=== PATIENT | female | born 1990 | race African-American/Black ===

== ENCOUNTER 2016-11-08 13:29 | Emergency (ER) | payer SELFPAY ==
[~2016-11-08] VITALS: Ht 162.6 cm; Wt 91.6 kg
--- NOTE | 2016-11-08 13:54 | NUR ---
PT IS IN ROOM ###2A. DR CONTRERAS EVALUATED THE PT.
[2016-11-08 14:09] LABS: BASOPHILS % (AUTO) 0.1 % (0.0-2.0); EOSINOPHILS # (AUTO) 0.3 K/uL (0.0-0.7); EOSINOPHILS % (AUTO) 5.3 % (0.0-7.0); HEMATOCRIT 36.3 % (37-47); LYMPHOCYTES # (AUTO) 1.6 K/UL (0.8-4.8); LYMPHOCYTES % (AUTO) 27.9 % (20.5-51.5); MEAN CORPUSCULAR HEMOGLOBIN 25.7 UUG (27.0-31.0); MEAN CORPUSCULAR HGB CONC 33 g/dL (32.0-37.0); MEAN CORPUSCULAR VOLUME 77.9 FL (81.0-99.0); MONOCYTES # (AUTO) 0.7 K/UL (0.1-1.30); NEUTROPHILS % (AUTO) 54.7 % (38.5-71.5); PLATELET COUNT (AUTO) 348 K/UL (150-450); RED BLOOD CELL COUNT(AUTO) 4.66 MIL/UL (4.2-5.4); WHITE BLOOD COUNT (AUTO) 5.6 K/UL (4.0-11.2)
[2016-11-08] MEDS ORDERED: AMIT75TA2 PO (14:18)
[2016-11-08] MEDS ORDERED: ONDA8TAB9 PO (14:18)
[2016-11-08] MEDS ORDERED: HYDR50CA PO (14:18)
[2016-11-08] MEDS ORDERED: OMEP20CA10 PO (14:18)
[2016-11-08] MEDS ORDERED: GABA-534 PO (14:18)
[2016-11-08] MEDS ORDERED: CLON0.1T PO ×2 (14:18)
[2016-11-08] MEDS ORDERED: LORA-259 PO (14:18)
[2016-11-08] MEDS ORDERED: SERT100T PO (14:18)
[2016-11-08] MEDS ORDERED: HALO2TAB PO (14:18)
[2016-11-08] MEDS ORDERED: TRAZ-147 PO (14:18)
[2016-11-08] MEDS ORDERED: FOLI1TAB16 PO (14:18)
[2016-11-08] MEDS ORDERED: MAG30ORA PO (14:18)
[2016-11-08] MEDS ORDERED: [UNRECOGNIZED DRUG - OTHER] PO (14:18)
[2016-11-08] MEDS ORDERED: MAG-55 PO (14:18)
[2016-11-08] MEDS ORDERED: IBUP-1955 PO (14:18)
[2016-11-08] MEDS ORDERED: DIVA500T7 PO (14:18)
[2016-11-08] MEDS ORDERED: DULO60CA45 PO (14:18)
[2016-11-08] MEDS ORDERED: DOCU-25 PO (14:18)
[2016-11-08] MEDS ORDERED: FAMO20TA8 PO (14:18)
[2016-11-08] MEDS ORDERED: AMIT150T PO (14:18)
[2016-11-08] MEDS ORDERED: NERVE TONIC PO (14:18)
[2016-11-08] MEDS ORDERED: TRAZ-144 PO (14:18)
[2016-11-08] MEDS ORDERED: LOPE2CAP40 PO (14:18)
[2016-11-08 14:44] LABS: CREATININE 0.8 mg/dL (0.6-1.3); POTASSIUM 3.7 mmol/L (3.5-5.1)
[2016-11-08 14:55] LABS: BILIRUBIN,DIRECT 2.4 mg/dL (0.0-0.2); BILIRUBIN,TOTAL 3.1 mg/dL (0.2-1.0); TOTAL PROTEIN, SERUM 7.5 g/dL (6.4-8.2)
[2016-11-08 15:08] LABS: *URINE HCG, QUAL NEGATIVE (NEGATIVE)
[2016-11-08 15:11] LABS: *BLOOD, URINE NEGATIVE (NEGATIVE); *CLARITY,URINE CLOUDY (CLEAR); *COLOR,URINE AMBER (YELLOW); *KETONES,URINE TRACE (NEGATIVE); *PROTEIN,URINE TRACE (NEGATIVE); LEUKOCYTE ESTERASE ,URINE NEGATIVE (NEGATIVE); NITRITE, URINE NEGATIVE (NEGATIVE); UGLUCOSE NEGATIVE (NEGATIVE)
[2016-11-08 15:23] VITALS: BP 135/71
--- NOTE | 2016-11-08 15:23 | NUR ---
PT WAS D/C TO HER FACILITY. D/C INSTRUCTIONS GIVEN TO THE PT.
[2016-11-08 15:28] LABS: *BILIRUBIN,URIN 3+ (NEGATIVE)
[2016-11-08 15:29] LABS: MUCUS,URINE MANY /LPF (0-FEW); SQUAMOUS EPITHELIAL CELL,UR MODERATE /HPF (NONE SEEN); URINE AMORPHOUS PHOSPHATES MANY /HPF; WBC,URINE 0-3 /HPF (0-3)
== END 2016-11-08 15:24 | disposition home or self-care (01) ==
LOC: ER 13:31
DX: K29.70 Gastritis, unspecified, without bleeding (principal); B19.10 Unspecified viral hepatitis B without hepatic coma; F43.10 Post-traumatic stress disorder, unspecified; Z87.442 Personal history of urinary calculi; Z90.49 Acquired absence of other specified parts of digestive tract; G43.909 Migraine, unspecified, not intractable, without status migrainosus; M79.7 Fibromyalgia; N83.209 Unspecified ovarian cyst, unspecified side; Z88.1 Allergy status to other antibiotic agents; Z88.2 Allergy status to sulfonamides; Z88.6 Allergy status to analgesic agent; F17.200 Nicotine dependence, unspecified, uncomplicated; Z59.0 Homelessness
CPT/HCPCS: 36415; 83690; 84703; 85025; A4663

== ENCOUNTER 2016-11-11 18:13 | Emergency (ER) | payer SELFPAY ==
[~2016-11-11] VITALS: Ht 162.6 cm; Wt 93.0 kg
[~2016-11-11 18:13] MED LIST: AMIT150T PO; AMIT75TA2 PO; CLON0.1T PO; DIVA500T7 PO; DOCU-141 PO; DULO60CA45 PO; FAMO20TA8 PO; FOLI1TAB16 PO; GABA-534 PO; HALO2TAB PO; HYDR50CA PO; IBUP-1955 PO; LOPE2CAP40 PO; LORA-259 PO; MAG-55 PO; MAG30ORA PO; NERVE TONIC PO; OMEP20CA10 PO; ONDA8TAB9 PO; SERT100T PO; TRAZ-144 PO; TRAZ-147 PO; [UNRECOGNIZED DRUG - OTHER] PO
--- NOTE | 2016-11-11 19:22 | NUR ---
Received report from ARIADNE Mary. Assumed care of pt at this time. Pt resting in position of comfort for self. Awaiting further eval. Addendum: 11/11/16 at 2315 by AYDIN Pt drowsy, able to wake with tactile stimuli.
--- NOTE | 2016-11-11 20:00 | NUR ---
Labs drawn and sent by dentures lab technician. Pt awake and c/o 8/10 RUQ pain. MD notified, awaiting further orders.
[2016-11-11 20:01] LABS: BASOPHILS # (AUTO) 0.1 K/uL (0.0-8.0); BASOPHILS % (AUTO) 1.2 % (0.0-2.0); EOSINOPHILS # (AUTO) 0.5 K/uL (0.0-0.7); EOSINOPHILS % (AUTO) 7.3 % (0.0-7.0); LYMPHOCYTES # (AUTO) 2.5 K/UL (0.8-4.8); LYMPHOCYTES % (AUTO) 41.3 % (20.5-51.5); MONOCYTES # (AUTO) 0.8 K/UL (0.1-1.30); MONOCYTES % (AUTO) 12.1 % (0.0-11.0); NEUTROPHILS # (AUTO) 2.5 K/UL (1.8-8.9); NEUTROPHILS % (AUTO) 38.1 % (38.5-71.5); PLATELET COUNT (AUTO) 383 K/UL (150-450); WHITE BLOOD COUNT (AUTO) 6.4 K/UL (4.0-11.2)
[2016-11-11 20:08] LABS: HEMATOCRIT 41.3 % (37-47); HEMOGLOBIN 13.2 G/DL (12.0-16.0); MEAN CORPUSCULAR HEMOGLOBIN 25.3 UUG (27.0-31.0); MEAN CORPUSCULAR HGB CONC 32 g/dL (32.0-37.0); MEAN CORPUSCULAR VOLUME 78.9 FL (81.0-99.0); RED BLOOD CELL COUNT(AUTO) 5.23 MIL/UL (4.2-5.4)
[2016-11-11 20:09] LABS: CARBON DIOXIDE 28 mmol/L (21-32); CHLORIDE 102 mmol/L (98-107); CREATININE 0.9 mg/dL (0.6-1.3); GLUCOSE 115 mg/dL (74-106); POTASSIUM 4.4 mmol/L (3.5-5.1); UREA NITROGEN, BLOOD 7 mg/dL (7-18)
[2016-11-11 20:18] LABS: ETHANOL < 3 MG/DL (0-0)
[2016-11-11 20:20] LABS: ACETAMINOPHEN < 2.0 ug/mL (10-30); ALANINE AMINOTRANSFERASE 1143 U/L (14-59); ALKALINE PHOSPHATASE 163 U/L (50-136); ASPARTATE AMINOTRANSFERASE 1248 U/L (15-37); BILIRUBIN,DIRECT 1.4 mg/dL (0.0-0.2); BILIRUBIN,TOTAL 1.7 mg/dL (0.2-1.0); TOTAL PROTEIN, SERUM 8.3 g/dL (6.4-8.2)
--- NOTE | 2016-11-11 20:25 | NUR ---
Pt resting in position of comfort for self with eyes closed, resp even and unlaboring, sonorous. No obvious signs of distress at this time.
[2016-11-11 20:29] LABS: BAND % (MANUAL) 3 % (0-10); EOSINOPHILS % (MANUAL) 6 % (0-8); LYMPHOCYTES % (MANUAL) 41 % (20-40); MONOCYTES % (MANUAL) 12 % (2-10); NEUTROPHILS % (MANUAL) 38 % (42-75)
[2016-11-11 20:41] LABS: THYROID STIMULATING HORMONE 0.533 mIU/mL (0.358-3.740)
--- NOTE | 2016-11-11 21:10 | NUR ---
Pt resting with eyes closed, resp even and unlabored. Pt conts to be drowsy, waking with tactile stimuli. No obvious signs of distress at this time
[2016-11-11] MEDS ORDERED: MAG HYDROX/AL HYDROX/SIMETH 30 ML LIQUID UDC PO ONE (22:15)
[2016-11-11] MEDS ORDERED: LIDOCAINE VISCUS 2% 15 ML UDC MM ONE (22:15)
[2016-11-11] MEDS ORDERED: LIDOCAINE VISCUS 2% 15 ML UDC ONE (22:39)
[2016-11-11] MEDS ORDERED: MAG HYDROX/AL HYDROX/SIMETH 30 ML LIQUID UDC ONE (22:39)
--- NOTE | 2016-11-11 23:05 | NUR ---
Detox facility called for pt scrap picker
--- NOTE | 2016-11-11 23:28 | NUR ---
Facility staff arrived at bedside to take pt back. Pt stable for discharge per MD. Pt and staff member given ACI. Both verbalized understanding of dc instructions. Pt wheeled out of er via w/c
[2016-11-11 23:29] VITALS: BP 140/58
[2016-11-13 13:10] LABS: HEPATITIS A AB, TOTAL Negative (Negative); HEPATITIS B SURFACE AB Reactive (.)
== END 2016-11-11 23:29 | disposition home or self-care (01) ==
LOC: ER 18:15
DX: R10.11 Right upper quadrant pain (principal); G89.29 Other chronic pain; F20.9 Schizophrenia, unspecified; F31.9 Bipolar disorder, unspecified; Z59.0 Homelessness; Z88.6 Allergy status to analgesic agent; Z88.1 Allergy status to other antibiotic agents; Z86.19 Personal history of other infectious and parasitic diseases
CPT/HCPCS: 36415; 70030-TC; 76705; 83690; 84443; 85025; 85730; 86706; 86708; 86803; A4663; G0480; G0480-TC

== ENCOUNTER 2016-11-13 15:17 | Inpatient (IN) | payer BC, OTHER ==
[~2016-11-13] VITALS: Ht 162.6 cm; Wt 95.3 kg
[2016-11-13] MEDS ORDERED: MISCELLANEOUS MED XX ONE (16:30)
[2016-11-13] MEDS ORDERED: IRR STERIL WATER FOR IRR 700 ML, LACTULOSE 200 G PR ONE ×2 (16:45)
[2016-11-13 17:15] LABS: BASOPHILS # (AUTO) 0.1 K/uL (0.0-8.0); BASOPHILS % (AUTO) 0.9 % (0.0-2.0); EOSINOPHILS # (AUTO) 0.6 K/uL (0.0-0.7); EOSINOPHILS % (AUTO) 8.3 % (0.0-7.0); HEMATOCRIT 39.3 % (37-47); HEMOGLOBIN 12.5 G/DL (12.0-16.0); LYMPHOCYTES # (AUTO) 2.6 K/UL (0.8-4.8); MEAN CORPUSCULAR HEMOGLOBIN 25.1 UUG (27.0-31.0); MEAN CORPUSCULAR HGB CONC 32 g/dL (32.0-37.0); MEAN CORPUSCULAR VOLUME 79.4 FL (81.0-99.0); MONOCYTES # (AUTO) 0.8 K/UL (0.1-1.30); MONOCYTES % (AUTO) 11.6 % (0.0-11.0); NEUTROPHILS # (AUTO) 2.6 K/UL (1.8-8.9); NEUTROPHILS % (AUTO) 40.2 % (38.5-71.5); PLATELET COUNT (AUTO) 407 K/UL (150-450); RED BLOOD CELL COUNT(AUTO) 4.95 MIL/UL (4.2-5.4); WHITE BLOOD COUNT (AUTO) 6.7 K/UL (4.0-11.2)
[2016-11-13 17:25] LABS: CREATININE 0.9 mg/dL (0.6-1.3); POTASSIUM 4.6 mmol/L (3.5-5.1)
[2016-11-13 17:31] LABS: BILIRUBIN,DIRECT 0.6 mg/dL (0.0-0.2); ETHANOL < 3 MG/DL (0-0); TOTAL PROTEIN, SERUM 7.9 g/dL (6.4-8.2)
--- NOTE | 2016-11-13 18:00 | NUR ---
Pt sleeping but arousable to light touch, NAD noted at this time.
--- NOTE | 2016-11-13 18:28 | NUR ---
Pt refused I+O cath for urine, attempted to urinate via bedpain x [address] but unable to so far. Dr Go notified.
--- NOTE | 2016-11-13 19:15 | NUR ---
RECEIEVED REPORT FROM DAYSHIFT NURSE, PT IN BED ASLEEP AROUSABLE TO NAME, PT ALERT, ORIENTED X 4, NO RESP DISTRESS NOTED OR REPORTED, WILL CONTINUE TO MONITOR FOR SAFETY, PAIN AND COMFORT... PT RETURNED TO SLEEP..
--- NOTE | 2016-11-13 20:07 | NUR ---
Pt. admitted to Med Surg , under care of Dr. Carlton Patel, Belongs List completed, pt is alert, oriented x 4, no resp distress noted or reported upon transfer assessment... pt transferred via gurney...
--- NOTE | 2016-11-13 20:20 | NUR ---
PT [facility] FROM [facility] [employer]. PT A/OX3. VS STABLE. NO SIGNS OF ACUTE DISTRESS. NO COMPLAINTS OF PAIN AT THIS TIME. ORIENTED TO ROOM. ABLE TO MAKE NEEDS KNOWN. SAFETY PRECAUTIONS IMPLEMENTED. CALL LIGHT WITHIN REACH. WILL CONTINUE TO MONITOR.
[2016-11-13] MEDS ORDERED: LORAZEPAM 2 MG/1 ML VIAL IV PRN (20:45)
[2016-11-13] MEDS ORDERED: ONDANSETRON 4 MG/2 ML VIAL IV PRN (20:45)
[2016-11-13] MEDS ORDERED: BISACODYL 10 MG SUPP.RECT RC PRN (20:45)
[2016-11-13] MEDS ORDERED: HALOPERIDOL LACTATE 5 MG/1 ML VIAL IM PRN (20:45)
[2016-11-13 21:04] VITALS: BP 90/61
[2016-11-13] MEDS: IV D5/ 0.9% NACL 1,000 ML IV PRN (22:11)
[2016-11-14 04:40] VITALS: BP_SYST 141; BP_SYST 93; BP_DIAS 63; BP_DIAS 64
--- NOTE | 2016-11-14 06:39 | NUR ---
END OF SHIFT NOTES. PT SLEPT WELL THROUGHOUT SHIFT. V/S STABLE. NO SIGNS OF ACUTE DISTRESS. NO COMPLAINTS OF PAIN AT THIS TIME. IVF INFUSING. NEEDS ATTENDED. SAFETY MAINTAINED. CALL LIGHT WITHIN REACH.
--- NOTE | 2016-11-14 07:10 | NUR ---
PT SLEEPING IN BED, AWAKENS TO TOUCH. IN NO ACUTE DISTRESS, ABLE TO MAKE NEEDS KNOWN, NONE AT THIS TIME. IV INTACT AND PATENT INFUSING WELL. PT REMAINS NPO, ALL SAFETY AND COMFORT MEASURES ATTENDED TO, CALL LIGHT IN REACH.
[2016-11-14 07:14] LABS: BASOPHILS % (AUTO) 0.8 % (0.0-2.0); EOSINOPHILS # (AUTO) 0.5 K/uL (0.0-0.7); EOSINOPHILS % (AUTO) 8.4 % (0.0-7.0); HEMATOCRIT 35.9 % (37-47); HEMOGLOBIN 11.6 G/DL (12.0-16.0); LYMPHOCYTES # (AUTO) 2.6 K/UL (0.8-4.8); LYMPHOCYTES % (AUTO) 42.8 % (20.5-51.5); MEAN CORPUSCULAR HEMOGLOBIN 25.7 UUG (27.0-31.0); MEAN CORPUSCULAR HGB CONC 33 g/dL (32.0-37.0); MEAN CORPUSCULAR VOLUME 79.2 FL (81.0-99.0); MONOCYTES # (AUTO) 0.7 K/UL (0.1-1.30); MONOCYTES % (AUTO) 11.7 % (0.0-11.0); NEUTROPHILS # (AUTO) 2.2 K/UL (1.8-8.9); NEUTROPHILS % (AUTO) 36.3 % (38.5-71.5); PLATELET COUNT (AUTO) 350 K/UL (150-450); RED BLOOD CELL COUNT(AUTO) 4.53 MIL/UL (4.2-5.4)
[2016-11-14 07:55] LABS: MAGNESIUM 2.3 mg/dL (1.8-2.4); PHOSPHOROUS 5.4 mg/dL (2.5-4.9); POTASSIUM 4.5 mmol/L (3.5-5.1); TOTAL PROTEIN, SERUM 7.4 g/dL (6.4-8.2)
[2016-11-14] MEDS: IV D5/ 0.9% NACL 1,000 ML IV PRN ×2 (08:02→21:04)
[2016-11-14] MEDS: PANTOPRAZOLE SODIUM 40 MG VIAL IV SCH (08:04)
[2016-11-14] MEDS: METRONIDAZOLE 500 MG/NS 100ML 500 MG in PREMIXED 1 EACH IV SCH ×3 (11:16→21:04)
--- NOTE | 2016-11-14 11:25 | NUR ---
PT HAS PAIN 9/10 IN ABDOMEN AND HEAD. NO PAIN MEDICATIONS ORDERED, CALLED [facility] CONTRACT ADMINISTRATOR FOR ORDERS, ASKED PATIENT WHAT MEDICATION USUALLY WORKS SINCE PT HAS ALLERGY TO A LOT. PT STATED DILAUDID WORKS. CAP[facility]OS AWARE AND ORDERED MEDICATION FOR PAIN. WILL ADMINISTER AND MONITOR CLOSELY
[2016-11-14] MEDS: HYDROMORPHONE 1 MG/1 ML DISP.SYRIN IV PRN ×3 (11:43→22:15)
[2016-11-14 11:47] VITALS: BP 108/72
[2016-11-14 11:54] LABS: *BLOOD, URINE NEGATIVE (NEGATIVE); *CLARITY,URINE CLEAR (CLEAR); *KETONES,URINE NEGATIVE (NEGATIVE); LEUKOCYTE ESTERASE ,URINE NEGATIVE (NEGATIVE); NITRITE, URINE NEGATIVE (NEGATIVE); PH,URINE 7.5 (5.0-8.0); UGLUCOSE NEGATIVE (NEGATIVE)
[2016-11-14 12:14] LABS: THYROID STIMULATING HORMONE 0.577 mIU/mL (0.358-3.740)
[2016-11-14 12:20] LABS: *BILIRUBIN,URIN 1+ (NEGATIVE); *PROTEIN,URINE NEGATIVE (NEGATIVE)
[2016-11-14 12:21] LABS: *COLOR,URINE DARK YELLOW (YELLOW)
[2016-11-14 12:24] LABS: BACTERIA,URINE FEW /HPF (NONE SEEN); RBC,URINE 0-3 /HPF (0-3); SQUAMOUS EPITHELIAL CELL,UR MODERATE /HPF (NONE SEEN); WBC,URINE 0-3 /HPF (0-3)
[2016-11-14 12:25] LABS: MUCUS,URINE MODERATE /LPF (0-FEW)
[2016-11-14 12:28] LABS: *AMPHETAMINE, URINE NEGATIVE (NEGATIVE); *BARBITURATE, URINE NEGATIVE (NEGATIVE); *CANNABINOID, URINE NEGATIVE (NEGATIVE); *COCCAINE, URINE NEGATIVE (NEGATIVE); *OPIATE, URINE NEGATIVE (NEGATIVE); *PHENCYCLIDINE SCREEN,URINE NEGATIVE (NEGATIVE)
--- NOTE | 2016-11-14 13:41 | NUR ---
SPOKE WITH LUPE FROM PHARMACY REGARDING NEXT DOSE OF FLAGYL. 1ST DOSE WAS GIVEN AT 1115, NEXT DOSE (1400) TOO SOON TO GIVE. LUPE GAVE THE OKAY TO GIVE 1400 DOSE AT 1600 AND SAID SAFE TO GIVE AT THAT TIME. WILL FOLLOW THROUGH.
[2016-11-14] MEDS: TOPIRAMATE 25 MG TABLET PO SCH ×2 (14:51→21:04)
[2016-11-14 15:14] VITALS: BP 90/58
--- NOTE | 2016-11-14 19:30 | NUR ---
RECEIVED PATIENT LAYING COMFORTABLY IN BED, SLEEPING. NO SIGNS OF ACUTE DISTRESS AT THIS TIME. SAFETY INITIATED. CALL LIGHT WITHIN REACH.
[2016-11-14 20:00] VITALS: BP 96/67
[2016-11-15] MEDS: HYDROMORPHONE 1 MG/1 ML DISP.SYRIN IV PRN ×3 (03:24→15:43)
[2016-11-15 04:53] VITALS: BP 96/64
[2016-11-15] MEDS: METRONIDAZOLE 500 MG/NS 100ML 500 MG in PREMIXED 1 EACH IV SCH ×2 (05:40→12:55)
[2016-11-15 06:56] LABS: *OCCULT BLOOD STOOL NEGATIVE (NEGATIVE)
[2016-11-15 07:06] LABS: BASOPHILS # (AUTO) 0.1 K/uL (0.0-8.0); BASOPHILS % (AUTO) 1.5 % (0.0-2.0); EOSINOPHILS # (AUTO) 0.4 K/uL (0.0-0.7); EOSINOPHILS % (AUTO) 7.9 % (0.0-7.0); HEMATOCRIT 35.1 % (37-47); HEMOGLOBIN 11.1 G/DL (12.0-16.0); LYMPHOCYTES # (AUTO) 2.1 K/UL (0.8-4.8); MEAN CORPUSCULAR HEMOGLOBIN 25.1 UUG (27.0-31.0); MEAN CORPUSCULAR HGB CONC 32 g/dL (32.0-37.0); MEAN CORPUSCULAR VOLUME 79.6 FL (81.0-99.0); MONOCYTES # (AUTO) 0.5 K/UL (0.1-1.30); MONOCYTES % (AUTO) 9.3 % (0.0-11.0); NEUTROPHILS # (AUTO) 2.2 K/UL (1.8-8.9); NEUTROPHILS % (AUTO) 41.3 % (38.5-71.5); PLATELET COUNT (AUTO) 356 K/UL (150-450); RED BLOOD CELL COUNT(AUTO) 4.41 MIL/UL (4.2-5.4); WHITE BLOOD COUNT (AUTO) 5.3 K/UL (4.0-11.2)
--- NOTE | 2016-11-15 07:07 | NUR ---
PATIENT SLEPT INTERMITTENTLY T/O THE NIGHT. NO SIGNS OF DISTRESS NOTED. 2200 COMPLAINS OF PAIN 01/03, DILAUDID 1 MG IVP GIVEN ORDERED. STATED RELIEF. NO CHANGES NOTED T/O SHIFT. ALL SAFETY AND COMFORT MEASURES MAINTAINED T/O SHIFT.STOOL SAMPLE COLLECTED. ALL NEEDS MET.
[2016-11-15 07:24] LABS: BILIRUBIN,TOTAL 0.7 mg/dL (0.2-1.0); CREATININE 0.9 mg/dL (0.6-1.3); PHOSPHOROUS 4.5 mg/dL (2.5-4.9); POTASSIUM 4.1 mmol/L (3.5-5.1); TOTAL PROTEIN, SERUM 6.7 g/dL (6.4-8.2)
--- NOTE | 2016-11-15 08:45 | NUR ---
RECEIVED REPORT FROM CHARGE NURSE, PATIENT IS IN BED, A/O X4, SAFETY CHECK, BED IN LOW POSITION, SIDE RAILS UP X2.
[2016-11-15] MEDS: PANTOPRAZOLE SODIUM 40 MG VIAL IV SCH (08:51)
[2016-11-15] MEDS: TOPIRAMATE 25 MG TABLET PO SCH (08:51)
[2016-11-15] MEDS ORDERED: DULOXETINE 60 MG CAPSULE.DR PO SCH (10:45)
[2016-11-15] MEDS ORDERED: TRAZODONE 50 MG TABLET PO SCH (10:45)
[2016-11-15] MEDS ORDERED: AMITRIPTYLINE HCL 150 MG PO SCH (10:45)
[2016-11-15] MEDS ORDERED: NITROFURANTOIN/NITROFURAN MAC 100 MG CAPSULE PO SCH (10:45)
[2016-11-15] MEDS ORDERED: SERTRALINE HCL 100 MG TABLET PO SCH (10:45)
[2016-11-15] MEDS ORDERED: FOLIC ACID 1 MG TABLET PO SCH (10:45)
[2016-11-15 10:49] LABS: *BILIRUBIN,URIN NEGATIVE (NEGATIVE); *BLOOD, URINE 1+ (NEGATIVE); *CLARITY,URINE SLIGHTLY CLOUDY (CLEAR); *COLOR,URINE LIGHT YELLOW (YELLOW); *KETONES,URINE NEGATIVE (NEGATIVE); *PROTEIN,URINE NEGATIVE (NEGATIVE); *UROBILINOGEN,URINE 0.2 E.U./dl (NORMAL); LEUKOCYTE ESTERASE ,URINE TRACE (NEGATIVE); NITRITE, URINE NEGATIVE (NEGATIVE); PH,URINE 8.5 (5.0-8.0); UGLUCOSE NEGATIVE (NEGATIVE)
[2016-11-15 11:03] LABS: *AMPHETAMINE, URINE NEGATIVE (NEGATIVE); *BARBITURATE, URINE NEGATIVE (NEGATIVE); *CANNABINOID, URINE NEGATIVE (NEGATIVE); *COCCAINE, URINE NEGATIVE (NEGATIVE); *OPIATE, URINE POSITIVE (NEGATIVE); *PHENCYCLIDINE SCREEN,URINE NEGATIVE (NEGATIVE)
[2016-11-15 11:06] LABS: BACTERIA,URINE FEW /HPF (NONE SEEN); SQUAMOUS EPITHELIAL CELL,UR MODERATE /HPF (NONE SEEN); WBC,URINE 0-3 /HPF (0-3)
[2016-11-15] MEDS: DIVALPROEX 500 MG TABLET.DR PO SCH ×2 (11:27→17:31)
[2016-11-15] MEDS: GABAPENTIN 300 MG CAPSULE PO SCH ×2 (11:28→17:31)
[2016-11-15] MEDS: IV D5/ 0.9% NACL 1,000 ML IV PRN (11:29)
[2016-11-15] MEDS: HALOPERIDOL 2 MG TABLET PO SCH ×2 (11:39→17:31)
[2016-11-15 11:48] VITALS: BP 101/72
[2016-11-15] MEDS ORDERED: THIAMINE HCL 100 MG TABLET PO SCH (12:00)
[2016-11-15] MEDS ORDERED: MULTIVITAMINS,THERAPEUTIC TABLET PO SCH (12:00)
--- NOTE | 2016-11-15 13:00 | NUR ---
PATIENT AMBULATED WITH PHYSICAL THERAPY. PATIENT HAS A STABLE GAIT AND NO NEED FOR FURTHER PHYSICAL THERAPY.
[2016-11-15 14:11] LABS: HEPATITIS B SURFACE AB Reactive (.)
[2016-11-15 14:11] LABS: HEPATITIS A AB, IgM Negative (Negative); HEPATITIS A AB, TOTAL Negative (Negative); HEPATITIS B SURFACE AB Reactive (.); HEPATITIS B SURFACE AG Negative (Negative)
[2016-11-15 15:30] VITALS: BP 112/77
--- NOTE | 2016-11-15 17:52 | NUR ---
PATIENT HAS BEEN INTERMITTENTLY SLEEPING THROUGHOUT THE DAY. NO EVIDENCE OF DISTRESS, OR SOB. PATIENT IS RESTING COMFORTABLY IN BED. PATIENT ALSO GAVE CONSENT TO TALK TO MOTHER ABOUT ALL MEDICAL CONCERNS.
[2016-11-15 19:00] VITALS: BP 100/69
--- NOTE | 2016-11-15 19:50 | NUR ---
PT LEFT AMA. NOTIFIED. DNA SEQUENCING ASSOCIATE AWARE. RELEASE FORMS SIGNED AND DOCUMENTED.
[2016-11-15] MEDS ORDERED: AMITRIPTYLINE HCL 50 MG TABLET PO SCH (21:00)
[2016-11-15] MEDS ORDERED: AMITRIPTYLINE HCL PO SCH (21:00)
[2016-11-16 05:09] LABS: HEPATITIS Be ANTIGEN Negative (Negative)
[2016-11-16] MEDS ORDERED: PANTOPRAZOLE SODIUM 40 MG TABLET.DR PO SCH (07:00)
== END 2016-11-15 20:35 | disposition left against medical advice (07) | DRG 249 ==
LOC: ER 15:40 → MED 20:07
PROVIDERS: ADMIT Internal Medicine; ATTEND Internal Medicine
DX: K52.9 Noninfective gastroenteritis and colitis, unspecified (principal); D68.9 Coagulation defect, unspecified; E44.0 Moderate protein-calorie malnutrition; N39.0 Urinary tract infection, site not specified; R56.9 Unspecified convulsions; D50.9 Iron deficiency anemia, unspecified; F17.210 Nicotine dependence, cigarettes, uncomplicated; I10 Essential (primary) hypertension; G43.909 Migraine, unspecified, not intractable, without status migrainosus; M94.0 Chondrocostal junction syndrome [Tietze]; E83.39 Other disorders of phosphorus metabolism; M79.7 Fibromyalgia; E78.5 Hyperlipidemia, unspecified; E66.3 Overweight; F20.9 Schizophrenia, unspecified; F31.9 Bipolar disorder, unspecified; F43.10 Post-traumatic stress disorder, unspecified; J45.909 Unspecified asthma, uncomplicated; J98.11 Atelectasis; Z59.0 Homelessness; Z79.899 Other long term (current) drug therapy; Z82.49 Family history of ischemic heart disease and other diseases of the circulatory system; Z87.11 Personal history of peptic ulcer disease; Z87.442 Personal history of urinary calculi; Z87.01 Personal history of pneumonia (recurrent); Z90.49 Acquired absence of other specified parts of digestive tract; Z86.19 Personal history of other infectious and parasitic diseases; Q04.8 Other specified congenital malformations of brain; Z68.36 Body mass index [BMI] 36.0-36.9, adult
CPT/HCPCS: 36415; 70030-TC; 70450; 71010; 80164; 80307; 83550; 83605; 83690; 83735; 84100; 84443; 84703; 85025; 85730; 86704; 86705; 86706; 86708; 86709; 86803; 86850; 86900; 86901; 87040; 87046; 87086; 87177; 87340; 87350; 89055; 93005; 93307; 97161; A4217; A4663; C9113; G0480; J1170; J3490; J7030; J7042

== ENCOUNTER 2016-11-16 13:51 | Emergency (ER) | payer OTHER ==
[~2016-11-16] VITALS: Ht 162.6 cm; Wt 93.0 kg
[~2016-11-16 13:51] MED LIST changes: -AMIT150T PO
[2016-11-16 14:48] LABS: BASOPHILS # (AUTO) 0.1 K/uL (0.0-8.0); BASOPHILS % (AUTO) 1.9 % (0.0-2.0); EOSINOPHILS # (AUTO) 0.4 K/uL (0.0-0.7); EOSINOPHILS % (AUTO) 5.2 % (0.0-7.0); HEMATOCRIT 38.1 % (37-47); HEMOGLOBIN 12.5 G/DL (12.0-16.0); LYMPHOCYTES # (AUTO) 2.6 K/UL (0.8-4.8); LYMPHOCYTES % (AUTO) 35.7 % (20.5-51.5); MEAN CORPUSCULAR HGB CONC 33 g/dL (32.0-37.0); MONOCYTES # (AUTO) 0.7 K/UL (0.1-1.30); MONOCYTES % (AUTO) 9.9 % (0.0-11.0); NEUTROPHILS # (AUTO) 3.5 K/UL (1.8-8.9); NEUTROPHILS % (AUTO) 47.3 % (38.5-71.5); PLATELET COUNT (AUTO) 370 K/UL (150-450); RED BLOOD CELL COUNT(AUTO) 4.82 MIL/UL (4.2-5.4); WHITE BLOOD COUNT (AUTO) 7.3 K/UL (4.0-11.2)
[2016-11-16 15:01] LABS: CARBON DIOXIDE 23 mmol/L (21-32); CHLORIDE 108 mmol/L (98-107); CREATININE 0.9 mg/dL (0.6-1.3); GLUCOSE 170 mg/dL (74-106); POTASSIUM 4.2 mmol/L (3.5-5.1); UREA NITROGEN, BLOOD 5 mg/dL (7-18)
[2016-11-16 15:13] LABS: ETHANOL < 3 MG/DL (0-0)
[2016-11-16 15:14] LABS: ALANINE AMINOTRANSFERASE 319 U/L (14-59); ALKALINE PHOSPHATASE 120 U/L (50-136); ASPARTATE AMINOTRANSFERASE 149 U/L (15-37); BILIRUBIN,DIRECT 0.5 mg/dL (0.0-0.2); BILIRUBIN,TOTAL 0.6 mg/dL (0.2-1.0); LIPASE 83 U/L (73-393)
[2016-11-16 15:15] LABS: *BILIRUBIN,URIN NEGATIVE (NEGATIVE); *BLOOD, URINE NEGATIVE (NEGATIVE); *CLARITY,URINE CLEAR (CLEAR); *COLOR,URINE YELLOW (YELLOW); *KETONES,URINE NEGATIVE (NEGATIVE); *PROTEIN,URINE NEGATIVE (NEGATIVE); *UROBILINOGEN,URINE 0.2 E.U./dl (NORMAL); LEUKOCYTE ESTERASE ,URINE NEGATIVE (NEGATIVE); NITRITE, URINE NEGATIVE (NEGATIVE); UGLUCOSE NEGATIVE (NEGATIVE)
[2016-11-16 15:15] LABS: ACETAMINOPHEN < 2.0 ug/mL (10-30)
[2016-11-16 15:17] LABS: *URINE HCG, QUAL NEGATIVE (NEGATIVE)
[2016-11-16 15:27] LABS: *AMPHETAMINE, URINE NEGATIVE (NEGATIVE); *BARBITURATE, URINE NEGATIVE (NEGATIVE); *CANNABINOID, URINE NEGATIVE (NEGATIVE); *COCCAINE, URINE NEGATIVE (NEGATIVE); *OPIATE, URINE NEGATIVE (NEGATIVE); *PHENCYCLIDINE SCREEN,URINE NEGATIVE (NEGATIVE); BACTERIA,URINE FEW /HPF (NONE SEEN); SQUAMOUS EPITHELIAL CELL,UR MODERATE /HPF (NONE SEEN); WBC,URINE 0-3 /HPF (0-3)
--- NOTE | 2016-11-16 16:07 | NUR ---
Patient discharged to home in stable conditon. Written and verbal after care instructions given. Patient and caregiver from [facility] verbalizes understanding of instructions.
== END 2016-11-16 16:10 | disposition home or self-care (01) ==
LOC: ER 13:51
DX: R10.11 Right upper quadrant pain (principal); Z59.0 Homelessness; G43.909 Migraine, unspecified, not intractable, without status migrainosus; M79.7 Fibromyalgia; F19.10 Other psychoactive substance abuse, uncomplicated; F10.10 Alcohol abuse, uncomplicated; N83.209 Unspecified ovarian cyst, unspecified side; F17.200 Nicotine dependence, unspecified, uncomplicated; Z88.0 Allergy status to penicillin; Z91.013 Allergy to seafood; Z88.1 Allergy status to other antibiotic agents; Z88.2 Allergy status to sulfonamides; Z88.6 Allergy status to analgesic agent; Z88.8 Allergy status to other drugs, medicaments and biological substances; Z90.49 Acquired absence of other specified parts of digestive tract
CPT/HCPCS: 36415; 74176; 80048; 80076; 80307; 81001; 83690; 84703 ×2; 85025; 99285; A4663; G0480 ×2; G0481

== ENCOUNTER 2016-11-16 18:45 | Inpatient (IN) | payer OTHER ==
[~2016-11-16] VITALS: Ht 162.6 cm; Wt 98.0 kg
--- NOTE | 2016-11-16 20:06 | NUR ---
DR JESSICA INTO EVAL PATIENT
[2016-11-16] MEDS ORDERED: IV NORMAL SALINE 1000 ML BAG IV ONE (20:15)
[2016-11-16 20:37] LABS: BASOPHILS % (AUTO) 0.6 % (0.0-2.0); EOSINOPHILS # (AUTO) 0.4 K/uL (0.0-0.7); HEMATOCRIT 38.3 % (37-47); HEMOGLOBIN 12.2 G/DL (12.0-16.0); LYMPHOCYTES # (AUTO) 2.9 K/UL (0.8-4.8); LYMPHOCYTES % (AUTO) 38.8 % (20.5-51.5); MEAN CORPUSCULAR HEMOGLOBIN 25.5 UUG (27.0-31.0); MEAN CORPUSCULAR HGB CONC 32 g/dL (32.0-37.0); MEAN CORPUSCULAR VOLUME 79.9 FL (81.0-99.0); MONOCYTES # (AUTO) 0.8 K/UL (0.1-1.30); MONOCYTES % (AUTO) 10.7 % (0.0-11.0); NEUTROPHILS # (AUTO) 3.3 K/UL (1.8-8.9); NEUTROPHILS % (AUTO) 44.9 % (38.5-71.5); PLATELET COUNT (AUTO) 397 K/UL (150-450); RED BLOOD CELL COUNT(AUTO) 4.79 MIL/UL (4.2-5.4); WHITE BLOOD COUNT (AUTO) 7.4 K/UL (4.0-11.2)
[2016-11-16 20:47] LABS: ALANINE AMINOTRANSFERASE 302 U/L (14-59); ALKALINE PHOSPHATASE 116 U/L (50-136); ASPARTATE AMINOTRANSFERASE 127 U/L (15-37); BILIRUBIN,DIRECT 0.5 mg/dL (0.0-0.2); BILIRUBIN,TOTAL 0.6 mg/dL (0.2-1.0); CARBON DIOXIDE 25 mmol/L (21-32); CHLORIDE 107 mmol/L (98-107); CREATININE 0.9 mg/dL (0.6-1.3); GLUCOSE 130 mg/dL (74-106); POTASSIUM 3.9 mmol/L (3.5-5.1); UREA NITROGEN, BLOOD 6 mg/dL (7-18)
[2016-11-16 20:48] LABS: ACETAMINOPHEN < 2.0 ug/mL (10-30)
[2016-11-16 20:49] LABS: ETHANOL < 3 MG/DL (0-0)
[2016-11-16 21:08] LABS: *AMPHETAMINE, URINE NEGATIVE (NEGATIVE); *BARBITURATE, URINE NEGATIVE (NEGATIVE); *CANNABINOID, URINE NEGATIVE (NEGATIVE); *COCCAINE, URINE NEGATIVE (NEGATIVE); *OPIATE, URINE NEGATIVE (NEGATIVE); *PHENCYCLIDINE SCREEN,URINE NEGATIVE (NEGATIVE)
[2016-11-16 21:11] LABS: THYROID STIMULATING HORMONE 0.886 mIU/mL (0.358-3.740)
[2016-11-16 21:20] LABS: *BILIRUBIN,URIN NEGATIVE (NEGATIVE); *BLOOD, URINE Trace-intact (NEGATIVE); *CLARITY,URINE CLEAR (CLEAR); *COLOR,URINE YELLOW (YELLOW); *KETONES,URINE NEGATIVE (NEGATIVE); *PROTEIN,URINE NEGATIVE (NEGATIVE); *UROBILINOGEN,URINE 0.2 E.U./dl (NORMAL); LEUKOCYTE ESTERASE ,URINE NEGATIVE (NEGATIVE); NITRITE, URINE NEGATIVE (NEGATIVE); UGLUCOSE NEGATIVE (NEGATIVE)
[2016-11-16 21:21] LABS: *URINE HCG, QUAL NEGATIVE (NEGATIVE)
[2016-11-16 21:27] LABS: BACTERIA,URINE NONE SEEN /HPF (NONE SEEN); RBC,URINE NONE SEEN /HPF (0-3); SQUAMOUS EPITHELIAL CELL,UR FEW /HPF (NONE SEEN); WBC,URINE 0-3 /HPF (0-3)
[2016-11-16] MEDS ORDERED: FLUMAZENIL 0.5 MG/5 ML VIAL IV ONE ×2 (22:00→22:15)
--- NOTE | 2016-11-16 22:05 | NUR ---
PATEINT SNORING AND SLEEPING. DIFFICULT TO AROUSE AFTER GIVING ROMAZICON
[2016-11-16] MEDS ORDERED: FLUMAZENIL 0.5 MG/5 ML VIAL ONE ×2 (22:09→22:28)
--- NOTE | 2016-11-16 22:28 | NUR ---
PATIENT AWAKE. ABLE TO ANSWER QUESTION WITH CLEAR SPEECH. DR JASKARAN MCKEON RE EVAL
[2016-11-16] MEDS ORDERED: LOPERAMIDE HCL 2 MG CAPSULE PO PRN (23:15)
[2016-11-16] MEDS ORDERED: LORAZEPAM 1 MG TABLET PO PRN (23:15)
[2016-11-16] MEDS ORDERED: IBUPROFEN 600 MG TABLET PO PRN (23:15)
--- NOTE | 2016-11-16 23:23 | NUR ---
TRANSFERED TO 2ND FLOOR TELE VIA [facility]
[2016-11-16 23:25] VITALS: BP 119/84
[2016-11-16] MEDS: IV NS 1000 ML 1,000 ML IV PRN (23:40)
--- NOTE | 2016-11-17 00:41 | NUR ---
Received this female patient via [employer] awake & alert no SOB denies chest pain. Placed on Telemetry- sinus tachy on the monitor. Initial assessment done, vital signs are stable. On regular diet tolerated late dinner. Needs attended.
[2016-11-17 04:00] VITALS: BP 114/80
[2016-11-17] MEDS: MAG HYDROX/AL HYDROX/SIMETH 30 ML LIQUID UDC PO SCH ×2 (06:00)
--- NOTE | 2016-11-17 06:34 | NUR ---
Patient rested well, awake at this time, no further complaint. Sinus tachy on the monitor HR 107 bpm.
[2016-11-17 06:56] LABS: BASOPHILS # (AUTO) 0.1 K/uL (0.0-8.0); BASOPHILS % (AUTO) 0.8 % (0.0-2.0); EOSINOPHILS # (AUTO) 0.3 K/uL (0.0-0.7); EOSINOPHILS % (AUTO) 4.8 % (0.0-7.0); HEMATOCRIT 36.2 % (37-47); HEMOGLOBIN 11.8 G/DL (12.0-16.0); LYMPHOCYTES # (AUTO) 2.7 K/UL (0.8-4.8); LYMPHOCYTES % (AUTO) 38.3 % (20.5-51.5); MEAN CORPUSCULAR HEMOGLOBIN 25.7 UUG (27.0-31.0); MEAN CORPUSCULAR HGB CONC 33 g/dL (32.0-37.0); MEAN CORPUSCULAR VOLUME 78.8 FL (81.0-99.0); MONOCYTES # (AUTO) 0.7 K/UL (0.1-1.30); MONOCYTES % (AUTO) 9.5 % (0.0-11.0); NEUTROPHILS # (AUTO) 3.2 K/UL (1.8-8.9); NEUTROPHILS % (AUTO) 46.6 % (38.5-71.5); PLATELET COUNT (AUTO) 377 K/UL (150-450)
[2016-11-17] MEDS: PANTOPRAZOLE SODIUM 40 MG TABLET.DR PO SCH (07:00)
[2016-11-17 07:27] LABS: BILIRUBIN,TOTAL 0.5 mg/dL (0.2-1.0); CREATININE 0.8 mg/dL (0.6-1.3); PHOSPHOROUS 4.6 mg/dL (2.5-4.9); POTASSIUM 4.2 mmol/L (3.5-5.1); TOTAL PROTEIN, SERUM 7.4 g/dL (6.4-8.2)
[2016-11-17] MEDS ORDERED: MAG HYDROX/AL HYDROX/SIMETH 30 ML LIQUID UDC PO PRN (08:15)
[2016-11-17] MEDS ORDERED: ONDANSETRON ODT 4 MG TAB.RAPDIS SL PRN (08:30)
[2016-11-17] MEDS: HALOPERIDOL 2 MG TABLET PO SCH ×2 (09:00→16:52)
[2016-11-17] MEDS ORDERED: DIVALPROEX 500 MG TABLET.DR PO SCH ×2 (09:00→17:00)
[2016-11-17] MEDS: SERTRALINE HCL 100 MG TABLET PO SCH (09:00)
[2016-11-17] MEDS ORDERED: DULOXETINE 60 MG CAPSULE.DR PO SCH (09:00)
[2016-11-17] MEDS ORDERED: FAMOTIDINE 20 MG TABLET PO SCH (09:00)
[2016-11-17] MEDS: FOLIC ACID 1 MG TABLET PO SCH (09:40)
[2016-11-17] MEDS: DOCUSATE SODIUM 100 MG CAPSULE PO SCH ×2 (09:40→16:19)
[2016-11-17] MEDS: GABAPENTIN 300 MG CAPSULE PO SCH ×2 (09:40→16:19)
[2016-11-17 11:38] VITALS: BP 118/80
[2016-11-17] MEDS: AZTREONAM 1 G in IV NORMAL SALINE 50 ML IV SCH ×2 (15:42→22:47)
--- NOTE | 2016-11-17 15:55 | NUR ---
Clinical pharmacy note-Vancomycin dosing per pharmacy Subjective: To start Vancomycin on ths 26 year old patient for possible pneumonia(allergic to PCN) Objective; BUN 7 Scr 0.8 WBC 7.0 Temp 98.1 Ht 5'4" Wt 216 lbs Assessment/Plan: Will start Vancomycin 1500mg IV every 11hrs (first dose today at 1600) and draw trough by 4th dose(not ordered yet) for expected trough around 16.79. Will monitor renal function closely to adjust the dose if needed. Will monitor daily.
[2016-11-17 15:59] VITALS: BP 134/98
[2016-11-17] MEDS: DIVALPROEX 250 MG TABLET.DR PO SCH (16:20)
[2016-11-17] MEDS: VANCOMYCIN IV 1,500 MG in IV DEXTROSE 5% 500 ML IV SCH (16:50)
[2016-11-17 17:13] LABS: *AMPHETAMINE, URINE NEGATIVE (NEGATIVE); *BARBITURATE, URINE NEGATIVE (NEGATIVE); *CANNABINOID, URINE NEGATIVE (NEGATIVE); *COCCAINE, URINE NEGATIVE (NEGATIVE); *OPIATE, URINE NEGATIVE (NEGATIVE); *PHENCYCLIDINE SCREEN,URINE NEGATIVE (NEGATIVE)
[2016-11-17] MEDS: IV NS 1000 ML 1,000 ML IV PRN (18:11)
--- NOTE | 2016-11-17 19:20 | NUR ---
Bedside report with RIZWANA Esteves. Patient sound asleep at thsi time. No s/s of respiratory distress noted. Continue care as planned.
[2016-11-17 20:00] VITALS: BP 126/91
[2016-11-18] MEDS: VANCOMYCIN IV 1,500 MG in IV DEXTROSE 5% 500 ML IV SCH (02:48)
[2016-11-18 04:00] VITALS: BP 127/93
--- NOTE | 2016-11-18 04:50 | NUR ---
Awakened and ambulated to the bathroom. Voiding well,. More alert and coherent. Requested chocolate pudding saying she's very hungry, given and consumed 100% without no problem..All needs attended and met. No significant event reported all night.
[2016-11-18] MEDS: PANTOPRAZOLE SODIUM 40 MG TABLET.DR PO SCH (05:48)
[2016-11-18] MEDS: AZTREONAM 1 G in IV NORMAL SALINE 50 ML IV SCH (05:48)
[2016-11-18 06:48] LABS: BASOPHILS # (AUTO) 0.1 K/uL (0.0-8.0); BASOPHILS % (AUTO) 1.1 % (0.0-2.0); EOSINOPHILS # (AUTO) 0.3 K/uL (0.0-0.7); EOSINOPHILS % (AUTO) 3.5 % (0.0-7.0); HEMATOCRIT 35.2 % (37-47); HEMOGLOBIN 11.5 G/DL (12.0-16.0); LYMPHOCYTES # (AUTO) 2.3 K/UL (0.8-4.8); LYMPHOCYTES % (AUTO) 30.8 % (20.5-51.5); MEAN CORPUSCULAR HEMOGLOBIN 25.9 UUG (27.0-31.0); MEAN CORPUSCULAR HGB CONC 33 g/dL (32.0-37.0); MEAN CORPUSCULAR VOLUME 79.1 FL (81.0-99.0); MONOCYTES # (AUTO) 0.7 K/UL (0.1-1.30); MONOCYTES % (AUTO) 8.8 % (0.0-11.0); NEUTROPHILS # (AUTO) 4.1 K/UL (1.8-8.9); NEUTROPHILS % (AUTO) 55.8 % (38.5-71.5); PLATELET COUNT (AUTO) 318 K/UL (150-450); RED BLOOD CELL COUNT(AUTO) 4.45 MIL/UL (4.2-5.4); WHITE BLOOD COUNT (AUTO) 7.5 K/UL (4.0-11.2)
[2016-11-18 07:22] LABS: BILIRUBIN,TOTAL 0.7 mg/dL (0.2-1.0); CREATININE 0.8 mg/dL (0.6-1.3); MAGNESIUM 1.8 mg/dL (1.8-2.4); PHOSPHOROUS 3.9 mg/dL (2.5-4.9); POTASSIUM 3.5 mmol/L (3.5-5.1); TOTAL PROTEIN, SERUM 7.4 g/dL (6.4-8.2)
--- NOTE | 2016-11-18 07:25 | NUR ---
PT RECEIVED IN BED SLEEPING PT IS NPO FOR ASPIRATION PRECAUTIONS.
[2016-11-18] MEDS: DOCUSATE SODIUM 100 MG CAPSULE PO SCH (08:05)
[2016-11-18] MEDS: FOLIC ACID 1 MG TABLET PO SCH (08:05)
[2016-11-18] MEDS: GABAPENTIN 300 MG CAPSULE PO SCH (08:05)
[2016-11-18] MEDS: DIVALPROEX 250 MG TABLET.DR PO SCH (08:05)
[2016-11-18] MEDS: SERTRALINE HCL 100 MG TABLET PO SCH (08:05)
[2016-11-18] MEDS: HALOPERIDOL 2 MG TABLET PO SCH (08:19)
[2016-11-18] MEDS ORDERED: DIVA250T4 PO (11:34)
[2016-11-18] MEDS ORDERED: CEPHALEXIN MONOHYDRATE 500 MG CAPSULE PO SCH (11:45)
--- NOTE | 2016-11-18 11:57 | NUR ---
The patient will be discharged today back to [facility] [ ; [address] [place] [address]] per lElyn Figueroa NP. She is in agreement with her discharge. Josh from [facility] confirmed that they will pick her up via private car. Her nurse, Linn, is aware of her discharge plan.
[2016-11-18 12:38] VITALS: BP 123/93
--- NOTE | 2016-11-18 13:07 | NUR ---
d/c orders received noted and carried out.d/c instructions and educations given to the pt.d/c heplock per md orders.pt left the facility via private car in stable condition.
== END 2016-11-18 13:07 | disposition other institution (70) | DRG 91 ==
LOC: ER 18:47 → TELE 23:14
PROVIDERS: ADMIT Internal Medicine; ATTEND Internal Medicine
DX: G92 Toxic encephalopathy (principal); J69.0 Pneumonitis due to inhalation of food and vomit; E44.0 Moderate protein-calorie malnutrition; J98.11 Atelectasis; R17 Unspecified jaundice; D68.9 Coagulation defect, unspecified; F19.20 Other psychoactive substance dependence, uncomplicated; B19.10 Unspecified viral hepatitis B without hepatic coma; E66.9 Obesity, unspecified; Z68.37 Body mass index [BMI] 37.0-37.9, adult; Z59.0 Homelessness; M79.7 Fibromyalgia; F17.210 Nicotine dependence, cigarettes, uncomplicated; G43.909 Migraine, unspecified, not intractable, without status migrainosus; B19.20 Unspecified viral hepatitis C without hepatic coma; K52.9 Noninfective gastroenteritis and colitis, unspecified; F19.10 Other psychoactive substance abuse, uncomplicated; Y92.89 Other specified places as the place of occurrence of the external cause; F43.10 Post-traumatic stress disorder, unspecified; X58.XXXS Exposure to other specified factors, sequela; Z79.899 Other long term (current) drug therapy; Z82.49 Family history of ischemic heart disease and other diseases of the circulatory system; Z82.0 Family history of epilepsy and other diseases of the nervous system; E78.5 Hyperlipidemia, unspecified; E86.0 Dehydration; F14.10 Cocaine abuse, uncomplicated; F25.0 Schizoaffective disorder, bipolar type; D50.9 Iron deficiency anemia, unspecified; I10 Essential (primary) hypertension; J45.909 Unspecified asthma, uncomplicated; Z87.01 Personal history of pneumonia (recurrent); Z90.49 Acquired absence of other specified parts of digestive tract; Z87.442 Personal history of urinary calculi; Z87.11 Personal history of peptic ulcer disease; Z88.2 Allergy status to sulfonamides; Z88.6 Allergy status to analgesic agent; Z88.1 Allergy status to other antibiotic agents; Z88.0 Allergy status to penicillin; Z91.013 Allergy to seafood; T42.4X5A Adverse effect of benzodiazepines, initial encounter
CPT/HCPCS: 36415; 70030-TC; 70450; 71010; 80164; 80307; 83735; 84100; 84443; 84703; 85025; 85730; 87086; 93005; A4663; C1758; G0480; G0480-TC; J3370; J3490; J7030; J7060

== ENCOUNTER 2016-11-19 14:43 | Inpatient (IN) | payer OTHER ==
[~2016-11-19] VITALS: Ht 162.6 cm; Wt 81.6 kg
[~2016-11-19 14:43] MED LIST changes: -AMIT75TA2 PO; -CLON0.1T PO; +DIVA250T4 PO; -DIVA500T7 PO; -DOCU-141 PO; -DULO60CA45 PO; -HYDR50CA PO; -LOPE2CAP40 PO; -MAG30ORA PO; -NERVE TONIC PO; -OMEP20CA10 PO; -TRAZ-144 PO; -TRAZ-147 PO; -[UNRECOGNIZED DRUG - OTHER] PO
[2016-11-19 15:38] LABS: BASOPHILS % (AUTO) 0.5 % (0.0-2.0); EOSINOPHILS # (AUTO) 0.2 K/uL (0.0-0.7); EOSINOPHILS % (AUTO) 2.1 % (0.0-7.0); HEMATOCRIT 33.9 % (37-47); HEMOGLOBIN 10.5 G/DL (12.0-16.0); LYMPHOCYTES # (AUTO) 1.7 K/UL (0.8-4.8); LYMPHOCYTES % (AUTO) 20.1 % (20.5-51.5); MEAN CORPUSCULAR HEMOGLOBIN 24.4 UUG (27.0-31.0); MEAN CORPUSCULAR HGB CONC 31 g/dL (32.0-37.0); MEAN CORPUSCULAR VOLUME 78.7 FL (81.0-99.0); MONOCYTES # (AUTO) 0.9 K/UL (0.1-1.30); MONOCYTES % (AUTO) 10.2 % (0.0-11.0); NEUTROPHILS # (AUTO) 5.9 K/UL (1.8-8.9); NEUTROPHILS % (AUTO) 67.1 % (38.5-71.5); PLATELET COUNT (AUTO) 331 K/UL (150-450); RED BLOOD CELL COUNT(AUTO) 4.31 MIL/UL (4.2-5.4); WHITE BLOOD COUNT (AUTO) 8.7 K/UL (4.0-11.2)
[2016-11-19 16:09] LABS: CARBON DIOXIDE 30 mmol/L (21-32); CHLORIDE 105 mmol/L (98-107); CREATININE 0.8 mg/dL (0.6-1.3); GLUCOSE 114 mg/dL (74-106); POTASSIUM 4.2 mmol/L (3.5-5.1); UREA NITROGEN, BLOOD 8 mg/dL (7-18)
[2016-11-19 16:22] LABS: ALANINE AMINOTRANSFERASE 126 U/L (14-59); ALKALINE PHOSPHATASE 91 U/L (50-136); ASPARTATE AMINOTRANSFERASE 46 U/L (15-37); BILIRUBIN,DIRECT 0.4 mg/dL (0.0-0.2); BILIRUBIN,TOTAL 0.5 mg/dL (0.2-1.0); TOTAL PROTEIN, SERUM 7.6 g/dL (6.4-8.2)
[2016-11-19 16:29] LABS: ACETAMINOPHEN < 2.0 ug/mL (10-30)
[2016-11-19 16:56] LABS: ETHANOL < 3 MG/DL (0-0)
[2016-11-19 17:05] LABS: EOSINOPHILS % (MANUAL) 2 % (0-8); LYMPHOCYTES % (MANUAL) 26 % (20-40); MONOCYTES % (MANUAL) 7 % (2-10); NEUTROPHILS % (MANUAL) 65 % (42-75)
[2016-11-19 17:57] LABS: *BILIRUBIN,URIN NEGATIVE (NEGATIVE); *BLOOD, URINE NEGATIVE (NEGATIVE); *CLARITY,URINE CLEAR (CLEAR); *COLOR,URINE YELLOW (YELLOW); *KETONES,URINE NEGATIVE (NEGATIVE); *PROTEIN,URINE NEGATIVE (NEGATIVE); *UROBILINOGEN,URINE 0.2 E.U./dl (NORMAL); LEUKOCYTE ESTERASE ,URINE NEGATIVE (NEGATIVE); NITRITE, URINE NEGATIVE (NEGATIVE); UGLUCOSE NEGATIVE (NEGATIVE)
[2016-11-19 18:04] LABS: *URINE HCG, QUAL NEGATIVE (NEGATIVE)
[2016-11-19 18:14] LABS: *AMPHETAMINE, URINE NEGATIVE (NEGATIVE); *BARBITURATE, URINE NEGATIVE (NEGATIVE); *CANNABINOID, URINE NEGATIVE (NEGATIVE); *COCCAINE, URINE NEGATIVE (NEGATIVE); *OPIATE, URINE NEGATIVE (NEGATIVE); *PHENCYCLIDINE SCREEN,URINE NEGATIVE (NEGATIVE)
[2016-11-19 18:17] LABS: BACTERIA,URINE FEW /HPF (NONE SEEN); RBC,URINE 0-3 /HPF (0-3); SQUAMOUS EPITHELIAL CELL,UR FEW /HPF (NONE SEEN); WBC,URINE 0-3 /HPF (0-3)
[2016-11-19] MEDS ORDERED: ONDANSETRON 4 MG/2 ML VIAL IV PRN (18:30)
[2016-11-19] MEDS ORDERED: LORAZEPAM 2 MG/1 ML VIAL IV PRN (18:30)
[2016-11-19] MEDS ORDERED: MAGNESIUM HYDROXIDE 30 ML LIQUID UDC PO PRN (18:30)
--- NOTE | 2016-11-19 18:30 | NUR ---
transfered pt to floor. per er pt does not heplock at this point
--- NOTE | 2016-11-19 19:15 | NUR ---
RECEIVED PATIENT AWAKE IN BED. A/O X4. DENIES PAIN OR DISCOMFORT. PATIENT IS ASKING TO GO OUTSIDE TO SMOKE. INFORMED PATIENT THAT SHE DOES NOT HAVE AN ORDER TO SMOKE AND PATIENT SAID, "FINE, I WILL JUST LEAVE AMA, I LEFT BEFORE AND I WILL GO AGAIN." NOTIFIED LIME TRIMMER AND DR. ANNA. DR. ANNA STATED THAT PATIENT CAN LEAVE AMA. NURSING FURNACE DOOR TENDER NOTIFIED. WILL CONTINUE TO MONITOR.
--- NOTE | 2016-11-19 19:45 | NUR ---
PATIENT STATING THAT SHE DOESN'T WANT TO LEAVE AMA NOW. NOTIFIED DR. ANNA THAT PATIENT DECIDED TO STAY. MD AWARE THAT PATIENT DOES NOT HAVE IV ACCESS. PRN IV MEDICATIONS CHANGED TO PO ORDERED. ALL NEEDS ATTENDED. WILL CONTINUE TO MONITOR.
[2016-11-19 20:33] VITALS: BP 132/91
[2016-11-19] MEDS ORDERED: DOCUSATE SODIUM 250 MG CAPSULE PO SCH (21:00)
[2016-11-19] MEDS ORDERED: ONDANSETRON HCL 4 MG TABLET PO PRN (21:00)
[2016-11-19] MEDS ORDERED: DOCUSATE SODIUM 100 MG CAPSULE PO SCH (21:00)
[2016-11-19] MEDS: LORAZEPAM 0.5 MG TABLET PO PRN (21:34)
--- NOTE | 2016-11-20 02:25 | NUR ---
PATIENT AWAKE IN ROOM. STATING THAT SHE IS GOING DOWNSTAIRS TO SMOKE AND STATED SHE ASKED THE SITTER NEXT DOOR WHO IS SITTING FOR ANOTHER PATIENT TO TAKE HER DOWN. INFORMED PATIENT THAT DR. ANNA STATED SHE CAN NOT GO OUT TO SMOKE AND IF SHE DOESN'T AGREE WITH IT THEN SHE CAN LEAVE AMA. PATIENT BECAME HOSTILE AND UPSET, USING PROFOUND LANGUAGE, STATING, " I DON'T GIVE A f$%K WHAT YOU SAY." NOTIFIED NURSING TRANSIT PROOF MACHINE OPERATOR AND BLUNGER.
--- NOTE | 2016-11-20 02:40 | NUR ---
BACKPACKERS MANAGER AT BEDSIDE TO SPEAK WITH PATIENT. PATIENT IS REFUSING TO SIGN AMA PAPER.
--- NOTE | 2016-11-20 03:15 | NUR ---
PATIENT SITTING IN BED. CALM. PATIENT APOLOGIZED FOR PREVIOUS BEHAVIOR. ASKING FOR SOMETHING TO RELAX. PATIENT GIVEN ATIVAN 0.5MG PO PRN. WILL CONTINUE TO MONITOR.
[2016-11-20] MEDS: LORAZEPAM 0.5 MG TABLET PO PRN (03:16)
[2016-11-20 05:00] VITALS: BP 125/91
--- NOTE | 2016-11-20 06:23 | NUR ---
PATIENT ASLEEP IN BED. VSS. NO RESP. DISTRESS NOTED. CALL LIGHT IN REACH. ALL NEEDS ATTENDED. WILL CONTINUE TO MONITOR.
--- NOTE | 2016-11-20 07:30 | NUR ---
PT RECEIVED IN BED SLEEPING.PT IS AXOX4.NO C/O PAIN NOTED,BREAKFAST SERVED.
[2016-11-20 07:32] LABS: BASOPHILS % (AUTO) 0.4 % (0.0-2.0); EOSINOPHILS # (AUTO) 0.3 K/uL (0.0-0.7); EOSINOPHILS % (AUTO) 3.7 % (0.0-7.0); HEMATOCRIT 32.6 % (37-47); HEMOGLOBIN 10.8 G/DL (12.0-16.0); LYMPHOCYTES # (AUTO) 2.1 K/UL (0.8-4.8); LYMPHOCYTES % (AUTO) 28.2 % (20.5-51.5); MEAN CORPUSCULAR HEMOGLOBIN 26.3 UUG (27.0-31.0); MEAN CORPUSCULAR HGB CONC 33 g/dL (32.0-37.0); MONOCYTES # (AUTO) 0.8 K/UL (0.1-1.30); NEUTROPHILS # (AUTO) 4.3 K/UL (1.8-8.9); NEUTROPHILS % (AUTO) 56.7 % (38.5-71.5); PLATELET COUNT (AUTO) 354 K/UL (150-450); RED BLOOD CELL COUNT(AUTO) 4.12 MIL/UL (4.2-5.4); WHITE BLOOD COUNT (AUTO) 7.5 K/UL (4.0-11.2)
[2016-11-20 07:43] LABS: BILIRUBIN,TOTAL 0.4 mg/dL (0.2-1.0); CREATININE 0.9 mg/dL (0.6-1.3); MAGNESIUM 1.8 mg/dL (1.8-2.4); PHOSPHOROUS 4.5 mg/dL (2.5-4.9); TOTAL PROTEIN, SERUM 7.2 g/dL (6.4-8.2)
[2016-11-20] MEDS: GABAPENTIN 300 MG CAPSULE PO SCH ×2 (08:03→16:01)
[2016-11-20] MEDS: HALOPERIDOL 2 MG TABLET PO SCH ×2 (08:03→16:02)
[2016-11-20] MEDS: FAMOTIDINE 20 MG TABLET PO SCH ×2 (08:03→16:01)
[2016-11-20] MEDS ORDERED: FOLIC ACID 1 MG TABLET PO SCH (09:00)
[2016-11-20] MEDS ORDERED: SERTRALINE HCL 100 MG TABLET PO SCH (09:00)
--- NOTE | 2016-11-20 10:06 | NUR ---
The patient is medically cleared per Dr. Tucker. Spoke to Talat and Carole from [facility] [ ; [address], [place] [address]] about her discharge and they stated that they have booked a flight for the patient karime to go back home to [place] so that she can follow-up with her PCP. They will pick her up at the hospital via private car and they will have someone accompany her at [facility]. Spoke to her mother, Varsha Castellanos [ ], about the discharge and she will call [facility] for the itinerary. Her nurse, Linn, is aware of her discharge plan.
--- NOTE | 2016-11-20 11:00 | NUR ---
PT SEEN BY DR MURRAY.PT DISCHARGED TO HOME
[2016-11-20 11:59] VITALS: BP 129/96
--- NOTE | 2016-11-20 13:43 | NUR ---
PT IS SITTING UP IN HER BED ,EATING HER LUNCH,NO C/O PAIN NOTED.
[2016-11-20 16:14] VITALS: BP 121/86
--- NOTE | 2016-11-20 17:07 | NUR ---
D/C ORDERS RECEIVED NOTED AND CARRIED OUT.D/C INSTRUCTIONS AND EDUCATIONS GIVEN TO THE PT.PT LEFT THE FACILITY VIA PRIVATE CAR IN STABLE CONDITION.
== END 2016-11-20 17:10 | disposition home or self-care (01) | DRG 917 ==
LOC: ER 14:48 → MED 18:19
PROVIDERS: ADMIT Internal Medicine; ATTEND Internal Medicine
DX: T42.4X1A Poisoning by benzodiazepines, accidental (unintentional), initial encounter (principal); G92 Toxic encephalopathy; B19.10 Unspecified viral hepatitis B without hepatic coma; E78.5 Hyperlipidemia, unspecified; E66.9 Obesity, unspecified; D50.9 Iron deficiency anemia, unspecified; I10 Essential (primary) hypertension; Z87.01 Personal history of pneumonia (recurrent); Z87.11 Personal history of peptic ulcer disease; Z87.440 Personal history of urinary (tract) infections; Z87.442 Personal history of urinary calculi; Z90.49 Acquired absence of other specified parts of digestive tract; R74.0 Nonspecific elevation of levels of transaminase and lactic acid dehydrogenase [LDH]; E80.6 Other disorders of bilirubin metabolism; M94.0 Chondrocostal junction syndrome [Tietze]; G43.909 Migraine, unspecified, not intractable, without status migrainosus; J45.909 Unspecified asthma, uncomplicated; F31.9 Bipolar disorder, unspecified; B19.20 Unspecified viral hepatitis C without hepatic coma; I36.1 Nonrheumatic tricuspid (valve) insufficiency; I37.1 Nonrheumatic pulmonary valve insufficiency; F19.10 Other psychoactive substance abuse, uncomplicated; F10.10 Alcohol abuse, uncomplicated; K27.9 Peptic ulcer, site unspecified, unspecified as acute or chronic, without hemorrhage or perforation; F41.9 Anxiety disorder, unspecified; F32.9 Major depressive disorder, single episode, unspecified; F17.210 Nicotine dependence, cigarettes, uncomplicated; G40.909 Epilepsy, unspecified, not intractable, without status epilepticus; M79.7 Fibromyalgia; F43.10 Post-traumatic stress disorder, unspecified; G47.30 Sleep apnea, unspecified; Z68.30 Body mass index [BMI] 30.0-30.9, adult; R90.89 Other abnormal findings on diagnostic imaging of central nervous system; F20.9 Schizophrenia, unspecified; Z79.899 Other long term (current) drug therapy; Y92.009 Unspecified place in unspecified non-institutional (private) residence as the place of occurrence of the external cause
CPT/HCPCS: 36415; 80307; 83735; 84100; 84703; 85025; A4663; G0480; G0480-TC